=== PATIENT | male | born 1970 | race Asian ===

== ENCOUNTER 2023-09-17 06:44 | Day surgery (SDC) | payer OTHER, SELFPAY ==
[2023-09-17 14:29] VITALS: BMI 29.8
[2023-09-17 14:30] VITALS: BMI 29.8
[2023-09-17 16:58] VITALS: BP 106/78
[2023-09-17 17:00] VITALS: BP 111/82
[2023-09-17 17:15] VITALS: BP 112/92
== END 2023-09-17 17:37 | disposition home or self-care (01) ==
LOC: GI 06:44
PROVIDERS: ATTENDING PHYSICIAN Internal Medicine Gastroenterology
DX: C18.7 Malignant neoplasm of sigmoid colon (principal); D12.5 Benign neoplasm of sigmoid colon; K64.0 First degree hemorrhoids
CPT/HCPCS: 45349; 45338; 88305; 88342

== ENCOUNTER → 2023-10-14 06:32 | Day surgery (SDC) | payer OTHER, SELFPAY | LOC: GI 06:32 | PROVIDERS: ATTENDING PHYSICIAN Surgery | DX: D49.0 Neoplasm of unspecified behavior of digestive system (principal); K64.9 Unspecified hemorrhoids; Z85.038 Personal history of other malignant neoplasm of large intestine | CPT/HCPCS: 45330 ==